=== PATIENT | male | born 1990 | race African-American/Black ===

== ENCOUNTER 2017-03-24 17:11 | Emergency (ER) | payer OTHER ==
[~2017-03-24] VITALS: Ht 167.6 cm; Wt 59.0 kg
[2017-03-24 17:18] VITALS: BP 105/66
[2017-03-24] MEDS ORDERED: NKM (17:36)
[2017-03-24] MEDS ORDERED: PROMETHAZI6.25 MG/1 ORAL (17:45)
[2017-03-24] MEDS ORDERED: PREDNISONE20 MG ORAL (17:45)
[2017-03-24] MEDS ORDERED: PROAIR HFA8.5 GM INH (17:45)
[2017-03-24 17:46] VITALS: BP 105/66
--- NOTE | 2017-03-24 18:20 | Emergency Room Report ---
History of Present Illness General Chief Complaint: Upper Respiratory Illness Source: Patient Present Illness HPI The patient is a 26-year-old male presenting for cough. He states that he has had this for the past 5 months and states it is worse at night. He also describes a yellow sputum. he denies any recent travel or sick contacts. He denies pain. He denies any other symptoms including rash, N, V, F, chills Allergies: Coded Allergies: ACETAMINOPHEN (Verified Allergy, Unknown, 03/24/17) Patient History Past Medical History: see triage record Pertinent Family History: none Reviewed Nursing Documentation: PMH: Agreed, PSxH: Agreed Nursing Documentation-PMH Hx Asthma: No - Bronchitis Review of Systems All Other Systems: negative except mentioned in HPI Physical Exam Vital Signs Date Time Temp Pulse Resp B/P (MAP) Pulse Ox O2 Delivery O2 Flow Rate FiO2 03/24/17 17:12 98.2 76 16 105/66 98 Room Air Sp02 EP Interpretation: reviewed, normal General Appearance: no apparent distress, alert, GCS 15, non-toxic Head: normocephalic, atraumatic Eyes: bilateral eye normal inspection, bilateral eye PERRL ENT: hearing grossly normal, normal pharynx, no angioedema, normal voice Neck: full range of motion, supple/symm/no masses Respiratory: chest non-tender, lungs clear, normal breath sounds, speaking full sentences Cardiovascular #1: regular rate, rhythm, no edema Genitourinary: normal inspection, no CVA tenderness Musculoskeletal: back normal, gait/station normal, normal range of motion, non- tender Neurologic: alert, oriented x3, responsive, motor strength/tone normal, sensory intact, normal gait, speech normal Psychiatric: judgement/insight normal, memory normal, mood/affect normal, no suicidal/homicidal ideation Skin: normal color, no rash, warm/dry, well hydrated Lymphatic: no adenopathy Medical Decision Making PA Attestation Dr. Cotto is my supervising physician. Patient management was discussed with my supervising physician Diagnostic Impression: Primary Impression: Asthma Qualified Codes: J45.909 - Unspecified asthma, uncomplicated ER Course The patient is a 26-year-old male presenting for cough. Differential diagnoses considered but not limited to: Asthma exacerbation, bronchitis, pneumonia, among others Physical exam: Vitals within normal limits. No apparent distress HEENT exam is unremarkable Lungs: CTA bilat. Chest is nontender. No respiratory distress. No accessory muscle use. CXR unremarkable Patient is discharged home with a prescription for albuterol, prednisone, and cough medication, and will followup with PMD. ER precautions are given Chest X-Ray Diagnostic Results Chest X-Ray Diagnostic Results : Chest X-Ray Ordered: Yes # of Views/Limited/Complete: 1 View Indication: Other - cough PA Xray: Interpretation reviewed, by supervising MD, and agrees with findings. Interpretation: no consolidation, no effusion, no pneumothorax, no acute cardiopulmonary disease Impression: No acute disease Electronically Signed by: ALVARO Garza Scribe Text I am acting as scribe for my supervising physician. My supervising physician's interpretation of the chest xrays are there is no consolidation, no effusion, no acute cardiopulmonary disease, no pneumothorax Last Vital Signs Date Time Temp Pulse Resp B/P (MAP) Pulse Ox O2 Delivery O2 Flow Rate FiO2 03/24/17 17:46 98.2 76 16 105/66 98 Room Air Status: improved Disposition: HOME, SELF-CARE Condition: Improved Scripts Promethazine Hcl (PROMETHAZINE HCL*) 6.25 Mg/5 Ml Syrup 5 ML ORAL Q6H, #120 ML 0 Refills Prov: ROBSON ISLASA. 03/24/17 Prednisone* (PREDNISONE*) 20 Mg Tablet 20 MG ORAL DAILY, #5 TAB 0 Refills Prov: ROBSON ISLAS P.A. 03/24/17 Albuterol Sulfate* (PROAIR HFA*) 8.5 Gm Hfa.aer.ad 2 PUFFS INH Q6H, #8.5 GM 0 Refills Prov: ROBSON ISLAS P.A. 03/24/17 Patient Instructions: Asthma, Adult Additional Instructions: I discussed my findings with the patient. All questions and concerns have been answered. Treatment and medication compliance have been addressed. I advised the patient that they need to follow up with PMD in 3-5 days. Return to ED if symptoms worsen, new symptoms arise, or if needed for any reason. Patient verbalized understanding of discharge instructions. ROBSON ISLAS Mar 24, 2017 18:20
--- NOTE | 2017-03-25 10:44 | Diagnostic Imaging Report ---
Indication: COUGH Technique: One view of the chest Comparison: none Findings: Lungs and pleural spaces are clear. Heart size is normal. Impression: No acute process
== END 2017-03-24 17:57 | disposition home or self-care (01) ==
LOC: EMR 17:30
DX: J45.909 Unspecified asthma, uncomplicated (principal); Z88.6 Allergy status to analgesic agent
CPT/HCPCS: 71010; 99284